=== PATIENT | male | born 1995 ===

== ENCOUNTER 2020-06-23 14:33 | Emergency (ER) | payer OTHER ==
[~2020-06-23] VITALS: Ht 180.3 cm; Wt 97.5 kg
[2020-06-23] MEDS ORDERED: MEDICAL MARAJUANA (16:16)
[2020-06-23] MEDS ORDERED: CLIN150 PO (16:28)
== END 2020-06-23 16:32 | disposition home or self-care (01) ==
LOC: ER 14:33
DX: K04.7 Periapical abscess without sinus (principal); Z88.0 Allergy status to penicillin; Z86.73 Personal history of transient ischemic attack (TIA), and cerebral infarction without residual deficits
CPT/HCPCS: 70450; 99284-25

== ENCOUNTER 2020-10-11 17:31 | Emergency (ER) | payer OTHER ==
[~2020-10-11] VITALS: Ht 177.8 cm; Wt 99.8 kg
[~2020-10-11 17:31] MED LIST: CLIN150 PO; MEDICAL MARAJUANA
== END 2020-10-11 19:45 | disposition left against medical advice (07) ==
LOC: ER 17:31
DX: Z53.21 Procedure and treatment not carried out due to patient leaving prior to being seen by health care provider (principal)